=== PATIENT | male | born 1955 | race Caucasian/White ===

== ENCOUNTER 2020-05-19 02:43 | Outpatient (CLI) | payer OTHER, SELFPAY ==
[2020-05-19 21:22] LABS: SARS-CoV-2 RNA PCR Negative
== END 2020-05-19 02:44 | disposition home or self-care (01) ==
LOC: ANHCOVIDDT 02:43
PROVIDERS: PCP Internal Medicine; Visit Provider Internal Medicine Critical Care Medicine
DX: R68.89 Other general symptoms and signs (principal); Z20.828 Contact with and (suspected) exposure to other viral communicable diseases
CPT/HCPCS: 87635; C9803; U0003

== ENCOUNTER 2020-05-21 07:44 | Outpatient (CLI) | payer OTHER, SELFPAY ==
--- NOTE | 2020-06-17 14:56 | P.SLEEP_ITS ---
Sleep Study Date of Study: 05/21/20 Ordering Provider: Dr.Jain Laila Interpreting Physician: Sleep Study Type: Polysomnogram Height: 1.8 m Weight: 88.904 kg Body Mass Index: 27.3 Neck Circumference: 43.18 cm [place]: 8 Reason for Sleep Study Daytime hypersomnolence, nocturnal dyspnea. Sleep History Patient has longstanding history of dyspnea secondary to COPD and lung resection. He also has nonobstructive coronary artery disease. His dyspnea recently had increased significantly and the patient endorsed occasional snoring, poor quality of sleep, non refreshing sleep and awakening at night occasionally with gasping /dyspneic sensation. [facility] Family History Family History (Updated 01/30/16 @ 23:19 by DOCTOR UNKNOWN) Mother Family history of diabetes mellitus in first degree relative Family history of coronary artery disease Social History Social History Smoking status: Smoker, status unknown Alcohol intake: current Medications Home Medications Medication Instructions Recorded Confirmed Type allopurinol 100 mg tablet 100 mg PO DAILY #90 tablet 02/21/20 Rx losartan 100 1 tablet PO DAILY #90 tablet 02/21/20 Rx mg-hydrochlorothiazide 25 mg tablet Sleep Procedure In-lab polysomnographic study Sleep Architecture Total recording time 407 minutes, sleep time 190 minutes, sleep efficiency 46.7%. Sleep latency 39 minutes, REM latency 133 minutes. Awake after sleep onset 177 minutes. Stage N1 17.1%, stage N2 66.3%, stage N3 0%, stage R 16.6% . Supine sleep 5.3% Respiratory Analysis patient had 3 apneas all central. There were 13 hypopneas, apnea-hypopnea index 5.1. All events were non supine. Non-REM index 2.6, REM index 17.1. Arousals Total arousals 104 -index 15.3, spontaneous 89 -index 13.1 , snores 12- index 1.8, respiratory events 3- index 0.4. Periodic Limb Movements No leg movements noted Oximetry Data Mean oxygen saturation 90.5, minimum saturation 85, saturation of 89 or below 65 minutes, saturation of 87 or below 1.8 minutes. Snoring Profile Intermittent snoring noted. Cardiac Profile Sinus rhythm average heart rate 65 beats per minute. No significant arrhythmia. EEG Profile unremarkable. Assessment and Plan Additional Plan patient shows presence of mild sleep disordered breathing predominantly seen in the REM sleep. The degree of desaturation was mild but recurrent. The desaturation was out of proportion to the degree of sleep disordered breathing. Most likely secondary to primary lung disease. Consider nocturnal oxygen therapy if appropriate particularly if pulmonary hypertension is present. If the patient's daytime symptomatology warrants, consider positive airway pressure study. Patient did not qualify for a split night protocol.
[2020-06-17 15:21] VITALS: BMI 27.3
== END 2020-05-21 07:45 | disposition home or self-care (01) ==
LOC: ANHCSM 07:44
PROVIDERS: PCP Internal Medicine; Visit Provider Internal Medicine Cardiovascular Disease
DX: G47.10 Hypersomnia, unspecified (principal)
CPT/HCPCS: 95811

== ENCOUNTER 2020-06-10 12:19 | Outpatient (CLI) | payer OTHER, SELFPAY ==
--- NOTE | ~2020-06-10 | XR_ITS ---
EXAMINATION: XR chest 2V DATE: 06/10/2020 12:58 INDICATION: Cough and chills. Left chest pressure. TECHNIQUE: Frontal and lateral views of the chest were obtained. COMPARISON: Chest 2 views 07/03/2019, chest CT 10/23/2014 FINDINGS: There are lucencies in the lungs, consistent with emphysema. There are surgical clips at le ft hilum from left lower lobectomy. There is mild atelectasis at the lung bases. No pleural effusion or pneumothorax. The heart size is normal. Surgical clips in the right upper quadrant are likely from cholecystectomy. There are old healed left rib fractures. IMPRESSION: 1. Mild atelectasis at the lung bases. 2. Emphysema. Reviewed, dictated and finalized at location B. [employer]
[2020-06-10 12:55] LABS: Basophils Absolute Auto 0.02 K/mm3 (0.00-0.10); Basophils Percent Auto 0.4 % (0.0-1.0); Hematocrit 47.8 % (40.0-54.0); Hemoglobin 15.6 g/dL (14.0-18.0); Immature Granulocyte Percent A 2.2 % (0.0-0.0); Lymphocytes Absolute Auto 1.37 K/mm3 (1.10-4.50); Lymphocytes Percent Auto 29.6 % (18.0-42.0); Mean Corpuscular HGB Conc 32.6 g/dL (32.0-36.0); Mean Corpuscular Hemoglobin 29.8 pg (27.0-31.0); Mean Corpuscular Volume 91.2 fL (78.0-102.0); Mean Platelet Volume 10.2 fl (8.7-11.0); Monocytes Absolute Auto 0.57 K/mm3 (0.10-0.90); Monocytes Percent Auto 12.3 % (2.0-11.0); Neutrophils Absolute Auto 2.6 K/mm3 (1.7-7.2); Neutrophils Percent Auto 55.5 % (50.0-70.0); Platelet Count Result 159 K/mm3 (150-420); Red Blood Count 5.24 M/mm3 (4.70-6.10); Red Cell Distribution Width 13.5 % (11.6-14.4); White Blood Count 4.6 K/mm3 (4.8-10.8)
[2020-06-10 13:14] LABS: SARS-CoV-2 Ag Positive (Negative)
== END 2020-06-10 12:20 | disposition home or self-care (01) ==
LOC: CHSLAB 12:21
PROVIDERS: PCP Internal Medicine; Visit Provider Internal Medicine
DX: U07.1 COVID-19 (principal); R05 Cough
CPT/HCPCS: 36415; 71046; 85025; 87426

== ENCOUNTER 2020-10-17 11:15 | Outpatient (CLI) | payer OTHER, SELFPAY | END 2020-10-17 11:16 | disposition home or self-care (01) | LOC: ANHCOVIDVC 11:15 | PROVIDERS: PCP Internal Medicine | DX: Z23 Encounter for immunization (principal) | CPT/HCPCS: 0001A; 91300 ==

== ENCOUNTER 2020-11-07 11:13 | Outpatient (CLI) | payer OTHER, SELFPAY | END 2020-11-07 11:14 | disposition home or self-care (01) | LOC: ANHCOVIDVC 11:13 | PROVIDERS: PCP Internal Medicine | DX: Z23 Encounter for immunization (principal) | CPT/HCPCS: 0002A; 91300 ==

== ENCOUNTER 2020-11-24 07:13 | Outpatient (CLI) | payer OTHER, SELFPAY | END 2020-11-24 07:14 | disposition home or self-care (01) | LOC: CHSLAB 07:16 | PROVIDERS: PCP Internal Medicine; Visit Provider Internal Medicine | DX: R79.9 Abnormal finding of blood chemistry, unspecified (principal) | CPT/HCPCS: 36415; 88184; 88185; 88189 ==

== ENCOUNTER 2020-11-25 09:12 | Outpatient (CLI) | payer OTHER, SELFPAY ==
--- NOTE | ~2020-11-25 | US_ITS ---
EXAMINATION: US aorta [facility] DATE: 11/25/2020 10:08 INDICATION: Abdominal aortic aneurysm screening with risk factors of hypertension and smoking. TECHNIQUE: Grayscale, color Doppler, and pulsed Doppler images of the aorta and common iliac arteries were obtained. COMPARISON: None. FINDINGS: The proximal aorta is poorly visualized with indistinct margins but does not appear dilated measuring approximately 2.3 cm maximal diameter. The mid aorta measures 1.7 cm in AP diameter. The distal aort a measures up to 1.9 cm maximal diameter before tapering to 1.1 cm at the bifurcation. The right comm on iliac artery measures 9 mm. The left common iliac artery measures 7 mm. IMPRESSION: 1. Normal caliber abdominal aorta. Reviewed, dictated and finalized at location A.
== END 2020-11-25 09:13 | disposition home or self-care (01) ==
PROVIDERS: PCP Internal Medicine; Visit Provider Internal Medicine Cardiovascular Disease
DX: Z87.891 Personal history of nicotine dependence (principal)
CPT/HCPCS: 76706

== ENCOUNTER 2021-07-06 09:47 | Outpatient (CLI) | payer OTHER, SELFPAY ==
[2021-07-06 11:55] LABS: Influenza A QL RT-PCR Negative (Negative); Influenza B QL RT-PCR Negative (Negative); SARS-CoV-2 RNA PCR Positive (Negative)
== END 2021-07-06 09:48 | disposition home or self-care (01) ==
LOC: CHSLAB 09:49
PROVIDERS: PCP Internal Medicine; Visit Provider Internal Medicine
DX: U07.1 COVID-19 (principal); J06.9 Acute upper respiratory infection, unspecified; J02.9 Acute pharyngitis, unspecified
CPT/HCPCS: 87081; 87502; 87880; C9803; U0003; U0005

== ENCOUNTER 2021-07-07 11:20 | Outpatient (CLI) | payer OTHER, SELFPAY ==
--- NOTE | 2021-07-07 11:30 | PC.NURSE ---
Pt to room 201 amb. A&Ox3. Infusion plan of care explained, consent read and signed. Pt has no questions or concerns. Oriented to room. Call mojica in reach. Reminded to call with needs.
[2021-07-07] MEDS: diphenhydrAMINE HCl CAP 25 MG CAPSULE PO (12:10)
[2021-07-07] MEDS: FAMOTIDINE 20 MG TABLET PO (12:10)
--- NOTE | 2021-07-07 13:05 | PC.NURSE ---
Pt tolerated infsuion well. Has no complaints. Discharged to home amb. per self.
== END 2021-07-07 11:21 | disposition home or self-care (01) ==
LOC: CHSTREATRM 11:21
PROVIDERS: PCP Internal Medicine; Visit Provider Internal Medicine
DX: U07.1 COVID-19 (principal); I10 Essential (primary) hypertension
CPT/HCPCS: A9270; M0245; Q0245

== ENCOUNTER 2023-03-21 10:53 | Emergency (ER) | payer MEDICARE, OTHER, SELFPAY ==
--- NOTE | ~2023-03-21 | XR_ITS ---
EXAMINATION: XR hand RT min 3V DATE: 03/21/2023 11:37 INDICATION: Contusion crush injury with laceration TECHNIQUE: Posteroanterior, oblique and lateral views of the right hand were obtained. COMPARISON: 03/21/2017 FINDINGS: Bone alignment is normal. No acute fracture. Chronic nonunited fracture across the base of the ulnar styloid process. Polyarticular osteoarthritis, moderate severity at the second and third metacarpopha langeal and third and fifth distal interphalangeal joints and mild at the first carpometacarpal, firs t metacarpophalangeal and remaining interphalangeal joints. There is a triangular pair of foreign bod ies together measuring 6 x 4 x 1 mm likely representing a couple of small glass shards in the soft ti ssues at the dorsal/radial to the mid diaphysis of the first proximal phalanx. There is thin linear l ucency extending across the foreign body which is likely divided into 2 separate fragments. IMPRESSION: 1. Pair of small foreign bodies with configuration suggesting shards of glass in the soft tissues at the right first proximal phalanx. 2. Chronic nonunited ulnar styloid avulsion fracture. No acute osseous abnormality. 3. 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 Reviewed, dictated and finalized at location A. IMPRESSION: 1. Pair of small foreign bodies with configuration suggesting shards of glass i n the soft tissues at the right first proximal phalanx. 2. Chronic nonunited ulnar styloid avulsion fracture. No acute osseous abnormal ity. 3. 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
[2023-03-21 10:53] VITALS: BP 172/105; PULSE 80; RESP 16; TEMP 37.1; O2SAT 98
--- NOTE | 2023-03-21 11:25 | ED.GENADULT ---
HPI - General Adult General Chief complaint: Extremity Injury, Upper Stated complaint: right thumb injury Time Seen by Provider: 03/21/23 11:18 History of Present Illness HPI narrative: 67YO MAN PRESENTS WITH LACERATION TO THE RIGHT THUMB AFTER WALL CABINET FELL AGAINST HIS HAND AND SCRAPED IT UP CAUSES THREE CUTS TO THE BACK OF THE THUMB. THERE IS SOME BROKEN GLASS. NO PREVIOUS KNOWN THUMB INJURY AND THUMB NOW NO LONGER FULLY EXTENDS. Related Data Home Medications Medication Instructions Recorded Confirmed albuterol sulfate 90 mcg/actuation 1 puff inhalation Q4H PRN SOB 07/01/20 03/21/23 aerosol inhaler (ProAir HFA) aspirin 81 mg tablet,delayed 81 mg PO DAILY 07/01/20 03/21/23 release atorvastatin 20 mg tablet (Lipitor) 20 mg PO DAILY 07/01/20 03/21/23 budesonide-formoterol HFA 160 2 puff inhalation Q12H 07/01/20 03/21/23 mcg-4.5 mcg/actuation aerosol inhaler (Symbicort) cholecalciferol (vitamin D3) 125 125 mcg PO DAILY 07/01/20 03/21/23 mcg (5,000 unit) capsule levothyroxine 150 mcg capsule 150 mcg PO DAILY 07/01/20 03/21/23 sildenafil (pulm.hypertension) 20 20 mg PO TID 07/01/20 03/21/23 mg tablet (Revatio) tiotropium bromide 2.5 2 puff inhalation DAILY 07/01/20 03/21/23 mcg/actuation mist for inhalation Allergies Allergy/AdvReac Type Severity Reaction Status Date / Time codeine Allergy Unknown Unknown Verified 03/21/23 11:18 [id number] Reductase Allergy Unknown Verified 03/21/23 11:18 Inhibitor [Brmqzhe-Iyw-Ntt Reductase Inhibitor] Review of Systems Review of Systems: All systems reviewed & are unremarkable except as noted in HPI and below Constitutional: Constitutional: Denies fever(s) ENT: Denies dysphagia Cardiovascular: Cardiovascular: Denies chest pain Respiratory: Respiratory: Denies dyspnea [facility] Past Medical History Medical History Cigar smoker COPD (chronic obstructive pulmonary disease) Diverticulitis Gout History of tobacco abuse Hypertension Hypothyroidism Lung cancer SOB (shortness of breath) Thyroid disease Valvular heart disease Surgical History Surgical History H/O cataract extraction H/O repair of rotator cuff History of appendectomy Hx of cholecystectomy Family History Family History Mother Family history of diabetes mellitus in first degree relative Family history of coronary artery disease Heart disease Diabetes mellitus Social History Social History Smoking packs per day: 2 Smoking cigarettes per day: 40.0 Years smoked: 35 Smoking pack-years: 70.00 Smoking status: Former smoker Smoking end date: 09/13/13 Alcohol intake: current Substance use: never Exam Const: General: healthy appearing and no acute distress Nutritional Appearance: well nourished Eyes: Conjunctivae: conjunctivae normal Cardio: Rate: regular rate GI: Inspection: non-distended Skin: General skin exam: normal color, no jaundice and no pallor Neuro: General: patient oriented x3 Other: inability to fully extend the right thumb at the IP joint Extrem: Other: THREE FULL THICKNESS TRANSVERSE LACERATIONS ON THE DORSAL ASPECT OF THE RIGHT THUMB WITH UNDERLYING CENTRAL SLIP COMPLETE TRANSECTION. TOGETHER THE LACS EQUAL 8 CM OF TOTAL FULL THICKNESS SKIN LACERATION LENGTH. THERE ARE MULTIPLE GLASS SHARDS PRESENT IN THE WOUND. Course Vital Signs Vital signs: Vital Signs Temperature 37.1 C 03/21/23 10:53 Pulse Rate 80 03/21/23 10:53 Respiratory Rate 16 03/21/23 10:53 Blood Pressure 172/105 H 03/21/23 10:53 Pulse Oximetry 98 03/21/23 10:53 Oxygen Delivery Room Air 03/21/23 10:53 Temperature 37.1 C 03/21/23 10:53 Pulse Rate 70 03/21/23 13:38 Respiratory Rate
[2023-03-21] MEDS: LIDO 1%/EPINEPHRINE 1:100,000 20 ML VIAL 10 ML INFILTRATE (12:20)
[2023-03-21 13:38] VITALS: BP 143/81; PULSE 70; RESP 16; O2SAT 98
== END 2023-03-21 13:52 | disposition home or self-care (01) ==
PROVIDERS: Emergency Provider Emergency Medicine; PCP Internal Medicine
DX: S61.021A Laceration with foreign body of right thumb without damage to nail, initial encounter (principal); S66.221A Laceration of extensor muscle, fascia and tendon of right thumb at wrist and hand level, initial encounter; W26.8XXA Contact with other sharp object(s), not elsewhere classified, initial encounter
CPT/HCPCS: 12004; 12044; 29125; 73130; 99284